=== PATIENT | female | born 1970 | race Caucasian/White ===

== ENCOUNTER 2020-09-19 15:53 | Emergency (ER) | payer BC, OTHER ==
--- OUTSIDE RECORDS SUMMARY | 2020-09-19 15:55 | XMS REPORT | Continuity of Care Document ---
:1970 Author Organization [facility] t Address [address] [place] [address] [place] [id number] Care Team Providers Name Role Phone Noe Rivas DO Attending Clinician Yissel Doan Attending Clinician [phone] Justin Major Attending Clinician Problems This patient has no known problems. Allergies, Adverse Reactions, Alerts This patient has no known allergies or adverse reactions. Medications This patient has no known medications. Procedures This patient has no known procedures. Encounters Start End Encounter Admission Attending Care Care Encounter Source Date/Time Date/Time Type Type Clinicians Facility Department ID 2020-09-10 2020-09-10 Patient Rob [facility] [id number] 00:00:00 00:00:00 Outreach [facility] [id number] Noe [facility] [id number] DISHA [id number] 2020-07-17 2020-07-17 Outpatient Za Doan [facility] [id number] 00:00:00 00:00:00 Yissel [id number] 2020-06-27 2020-06-27 Outpatient Za Doan [facility] [id number] 00:00:00 00:00:00 Yissel [id number] 2019-07-11 2019-07-11 [facility] [id number] 15:05:00 23:59:00 Encounter [facility] [id number] Surgical [id number] Specialti [id number] es 809 [place] 2019-07-11 2019-07-11 [facility] [id number] 14:52:06 15:07:06 Visit [facility] [id number] Surgical [id number] Specialti [id number] es [address] [place] Results This patient has no known results.
[2020-09-19 18:55] LABS: Magnesium 2.3 mg/dL (1.8-2.4); Potassium 3.9 mmol/L (3.5-5.1)
[2020-09-19 18:59] LABS: Absolute Lymphocytes (CBC) 2.5 K/uL (0.7-4.9); MPV 9.1 fL (7.6-11.3); RBC Red Blood Cell Count 4.01 M/uL (3.86-4.86)
--- NOTE | 2020-09-19 19:44 | RAD REPORT ---
EXAM DESCRIPTION: CT - Neck Angio - 09/19/2020 7:24 pm CLINICAL HISTORY: right posterior neck pain and swelling TECHNIQUE: During dynamic enhancement using nonionic IV contrast, axial 2 mm thick images of the nec k were obtained. Sagittal and axial reconstruction images were generated using MIP technique and revi ewed. All CT scans are performed using dose optimization technique as appropriate and may include automated exposure control or mA/KV adjustment according to patient size. COMPARISON: None FINDINGS: No aneurysm or vascular malformation identified. No carotid or vertebral dissection. No aortic arch or great vessel origin abnormality seen. Vertebral artery origins unremarkable as well . No stenosis, vasculitis or other significant carotid artery finding. No focal abnormality of either vertebral artery. Basilar artery is normal. Mild tortuosity in the distal vertebrobasilar vasculature. Imaging extended to the algaaciq of [place] l evel. No intracranial acute finding. Anterior communicating artery is present. Patient has a dominant right anterior cerebral artery A1 segment is a normal variant. IMPRESSION: Negative CT angio neck examination.
--- NOTE | 2020-09-19 20:17 | ER ---
Nurse's Notes [facility] Name: Mary Mayen Age: 50 yrs Sex: Female : 1970 Arrival Date: 09/19/2020 Time: 15:59 Bed 7 Private MD: Diagnosis: Cervicalgia-chronic Presentation: 09/19 16:09 Chief complaint: Patient states: Neck pain x 6 months, CT, MRI, US done. Ultrasound ca1 shows a mass at the cervical spine where it meets the thoracic spine. Scheduled a chiropractor visit today and the Chiropractor said that he could hear and feel a pulse at the back of my neck and could be an spinal aneurysm. So he sent me to the ER. Coronavirus screen: Client denies travel out of the [place] in the last 14 days. At this time, the client does not indicate any symptoms associated with coronavirus-19. Ebola Screen: Patient negative for fever greater than or equal to 101.5 degrees Fahrenheit, and additional compatible Ebola Virus Disease symptoms Patient denies exposure to infectious person. Patient denies travel to an Ebola-affected area in the 21 days before illness onset. No symptoms or risks identified at this time. Initial Sepsis Screen: Does the patient meet any 2 criteria? No. Patient's initial sepsis screen is negative. Does the patient have a suspected source of infection? No. Patient's initial sepsis screen is negative. Risk Assessment: Do you want to hurt yourself or someone else? Patient reports no desire to harm self or others. Onset of symptoms was September 19, 2020. 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 - Social history:: Smoking status: Patient reports the use of cigarette tobacco products, smokes one pack cigarettes per day. Screenin:36 Abuse screen: Denies threats or abuse. Denies injuries from another. Nutritional ss screening: No deficits noted. Tuberculosis screening: Never had TB. Fall Risk None identified. Assessment: 18:36 General: Appears in no apparent distress. comfortable, Behavior is calm, cooperative, ss Denies fever, feeling ill, fatigue, chills. Pain: Complains of pain in back of neck Pain currently is 0 out of 10 on a pain scale. at worst was 5 out of 10 on a pain scale. Quality of pain is described as tender, Pain began 6 months ago Is intermittent. Neuro: Level of Consciousness is awake, alert, obeys commands, Oriented to person, place, time, situation, Application Tester are equal bilaterally Speech is normal. Cardiovascular: Capillary refill < 3 seconds is brisk in bilateral fingers. Respiratory: Airway is patent Respiratory effort is even, unlabored, Respiratory pattern is regular, symmetrical. GI: Patient currently denies abdominal pain, diarrhea, nausea, vomiting. : No signs and/or symptoms were reported regarding the genitourinary system. Denies burning with urination, urinary frequency. EENT: Nares are clear Oral mucosa is moist. Derm: Skin is intact, is healthy with good turgor, Skin is dry, Skin is pink, warm \T\ dry. normal. Musculoskeletal: Circulation, motion, and sensation intact. Range of motion: intact in all extremities, Swelling absent. 20:51 Reassessment: Patient and/or family updated on plan of care and expected duration. Pain ea level reassessed. Patient is alert, oriented x 3, equal unlabored respirations, skin warm/dry/pink. Discharge instruction given to patient verbalized the understanding of instruction. Pt left ED ambulatory tolerating well Patient states feeling better. Vital Signs: 16:09 BP 136 / 79; Pulse 94; Resp 17 S; Temp 99(TE); Pulse Ox 99% on R/A; Weight 56.7 kg (R); ca1 Height 5 ft. 4 in. (162.56 cm) (R); Pain 0/10; 20:45 BP 123 / 73; Pulse 60; Resp 18; Pulse Ox 98% ; ea 16:09 Body Mass Index 21.46 (56.70 kg, 162.56 cm) ca1 ED Course: 15:59 Patient arrived in ED. ds1 16:13 Triage completed. ca1 16:15 Arm band placed on right wrist. ca1 18:06 Jd Welch PA is PHCP. cp 18:06 Dima Dyer MD is Attending Physician. cp 18:29 Reba Brar, RN is Primary Nurse. 18:34 Inserted saline lock: 20 gauge in right antecubital area, using aseptic technique. nm Blood collected. 18:36 Patient has correct armband on for positive identification. Bed in low position. Call light in reach. 19:06 Jd Dixon MD is Attending Physician. cp 20:46 No provider procedures requiring assistance completed. ea 20:46 IV discontinued, intact, bleeding controlled, No redness/swelling at site. Pressure ea dressing applied. Administered Medications: No medications were administered Outcome: 20:16 Discharge ordered by MD. cp 20:46 Discharged to home ambulatory, with family. ea 20:46 Condition: stable 20:46 Discharge instructions given to patient, Instructed on discharge instructions, follow up and referral plans. medication usage, Demonstrated understanding of instructions, follow-up care, medications, Prescriptions given X 2. 20:52 Patient left the ED. ea Signatures: Sherrie Olvera ds1 Reba Brar, RN RN Jd Yao PA PA Patsy Momin nm Pauline Reagan RN RN ea Acob, Cheryl RN RN ca1
--- NOTE | 2020-09-19 20:17 | EDPHYS ---
Physician Documentation [facility] Name: Mary Mayen Age: 50 yrs Sex: Female : 1970 Arrival Date: 09/19/2020 Time: 15:59 Bed 7 Private MD: ED Physician Jd Dixon HPI: 09/19 18:20 This 50 yrs old Female presents to ER via Ambulatory with complaints of Neck cp Pain. 18:20 The patient or guardian complains of pain, that is chronic. cp 18:20 The symptoms are located at the lower c-spine area. Onset: The symptoms/episode cp began/occurred 6 month(s) ago. 18:20 Patient reports she was referred to ED by local chiropractor for evaluation of chronic cp neck pain. Patient reports chiropractor palpated "pulsatile mass" posterior right lower neck today and was concerned about possible "aneurysm".. 18:20 Associated signs and symptoms: Pertinent negatives: numbness, tingling, weakness. cp THERAPY TECH: 16:15 LMP N/A - Hysterectomy ca1 Historical: - Allergies: 16:15 PENICILLINS; ca1 16:15 Sulfa (Sulfonamide Antibiotics); ca1 - Home Meds: 16:15 None [Active]; ca1 - PMHx: 16:15 Kidney stones; ca1 - PSHx: 16:15 Hysterectomy; breast augmentation; ca1 16:15 Appendectomy; Cholecystectomy; ca1 - Immunization history:: Flu vaccine is up to date. - Social history:: Smoking status: Patient reports the use of cigarette tobacco products, smokes one pack cigarettes per day. ROS: 18:30 Neck: Positive for pain with movement, pain at rest, mass right posterior lower neck. cp 18:30 Eyes: Negative for injury, pain, redness, and discharge. cp 18:30 Constitutional: Negative for body aches, chills, fever, poor PO intake. 18:30 ENT: Negative for ear pain, sore throat, difficulty swallowing, difficulty handling secretions. 18:30 Cardiovascular: Negative for chest pain, palpitations. 18:30 Respiratory: Negative for cough, shortness of breath, wheezing. 18:30 Abdomen/GI: Negative for nausea, vomiting, and diarrhea. 18:30 Back: Negative for pain at rest, pain with movement. 18:30 Skin: Negative for cellulitis, rash. 18:30 Neuro: Negative for altered mental status, headache, weakness. 18:30 All other systems are negative. Exam: 18:33 Constitutional: The patient appears in no acute distress, alert, awake, comfortable, cp non-toxic, well developed, well nourished. 18:33 Head/Face: Normocephalic, atraumatic. cp 18:33 Eyes: Periorbital structures: appear normal, Conjunctiva: normal, no exudate, no injection, Sclera: no appreciated abnormality, Lids and lashes: appear normal, bilaterally. 18:33 ENT: External ear(s): are unremarkable, Nose: is normal, Mouth: Lips: moist, Oral mucosa: moist, Posterior pharynx: Airway: no evidence of obstruction, patent. 18:33 Neck: External neck: swelling, that is mild, of the lower cervical area and right trapezius, tenderness, that is mild, of the lower cervical area and right trapezius, ROM/movement: is normal, is supple, no range of motions limitations, no meningismus, no nuchal rigidity, mild pain. 18:33 Chest/axilla: Inspection: normal, Palpation: is normal, no crepitus, no tenderness. 18:33 Cardiovascular: Rate: normal, Rhythm: regular. 18:33 Respiratory: the patient does not display signs of respiratory distress, Respirations: normal, no use of accessory muscles, no retractions, labored breathing, is not present, Breath sounds: are clear throughout, no decreased breath sounds, no stridor, no wheezing. 18:33 Abdomen/GI: Exam negative for discomfort, distension, guarding, Inspection: abdomen appears normal. 18:33 Skin: cellulitis, is not appreciated, no rash present. 18:33 Neuro: Orientation: to person, place \\T\\ time. Mentation: is normal, Motor: moves all fours, strength is normal, Deep tendon reflexes are 2+ (normal) in the right bicep, right tricep, right brachioradialis, left bicep, left tricep and left brachioradialis. Vital Signs: 16:09 BP 136 / 79; Pulse 94; Resp 17 S; Temp 99(TE); Pulse Ox 99% on R/A; Weight 56.7 kg (R); ca1 Height 5 ft. 4 in. (162.56 cm) (R); Pain 0/10; 20:45 BP 123 / 73; Pulse 60; Resp 18; Pulse Ox 98% ; ea 16:09 Body Mass Index 21.46 (56.70 kg, 162.56 cm) ca1 MDM: 18:14 Patient medically screened. cp 18:30 Differential diagnosis: C-Spine Fracture Cervical Disc Herniation Cervical Raiculopathy cp cervical strain, cyst, aneurysm. 20:15 Data reviewed: vital signs, nurses notes, radiologic studies, CT scan. cp 20:15 Counseling: I had a detailed discussion with the patient and/or guardian regarding: the cp historical points, exam findings, and any diagnostic results supporting the discharge/admit diagnosis, radiology results, to return to the emergency department if symptoms worsen or persist or if there are any questions or concerns that arise at home. 09/19 18:16 Order name: Basic Metabolic Panel 09/19 18:16 Order name: CBC with Diff 09/19 18:16 Order name: Magnesium cp 09/19 18:56 Order name: Basic Metabolic Panel; Complete Time: 20:04 EDMS 09/19 20:04 Interpretation: Normal except: GFR 70. cp 09/19 18:56 Order name: Magnesium; Complete Time: 20:04 EDMS 09/19 19:07 Order name: CBC with Automated Diff; Complete Time: 20:04 EDMS 09/19 18:16 Order name: Cardiac monitoring; Complete Time: 18:34 cp 09/19 18:16 Order name: IV Saline Lock; Complete Time: 18:34 cp 09/19 18:16 Order name: Labs collected and sent; Complete Time: 18:34 cp 09/19 18:16 Order name: O2 Per Protocol; Complete Time: 18:34 cp 09/19 18:16 Order name: O2 Sat Monitoring; Complete Time: 18:34 cp 09/19 18:16 Order name: CT Neck Angio cp 09/19 19:45 Order name: CT; Complete Time: 20:04 EDMS Administered Medications: No medications were administered Disposition: 09/20 08:11 Co-signature as Attending Physician, Jd Dixon MD I agree with the assessment and kera plan of care. Disposition: 09/19/20 20:16 Discharged to Home. Impression: Cervicalgia - chronic. - Condition is Stable. - Discharge Instructions: Neck Exercises. - Prescriptions for Lidoderm 5 % Topical adhesive patch,medicated - apply 1 patch by TRANSDERMAL route once daily As needed apply as directed to painful area of neck; 1 box. Voltaren 1 % Topical gel - apply 2 gram by TOPICAL route 4 times per day apply as directed to painful area of neck; 100 gram. - Medication Reconciliation Form, Thank You Letter, Antibiotic Education, Prescription Opioid Use form. - Follow up: Private Physician; When: 1 - 2 days; Reason: Recheck today's complaints. - Problem is chronic. - Symptoms are unchanged. Signatures: Dispatcher [employer] EDNY Jd Dixon MD MD cha Page, Corey, PA PA cp Antunez, Elena, RN RN Liz Camp RN RN ca1 Corrections: (The following items were deleted from the chart) 09/19 20:52 20:16 09/19/2020 20:16 Discharged to Home. Impression: Cervicalgia - chronic. Condition ea is Stable. Forms are Medication Reconciliation Form, Thank You Letter, Antibiotic Education, Prescription Opioid Use. Follow up: Private Physician; When: 1 - 2 days; Reason: Recheck today's complaints. Problem is chronic. Symptoms are unchanged. cp
== END 2020-09-19 20:52 | disposition home or self-care (01) ==
LOC: ER 15:53
DX: M54.2 Cervicalgia (principal); F17.210 Nicotine dependence, cigarettes, uncomplicated; Z88.0 Allergy status to penicillin; Z88.2 Allergy status to sulfonamides; Z98.82 Breast implant status
CPT/HCPCS: 85025; 80048; 36415; 83735; 70498; 99283; Q9967